=== PATIENT | female | born 1975 | race African-American/Black ===

== ENCOUNTER 2016-06-15 09:43 | Emergency (ER) | payer MEDICAID ==
[~2016-06-15] VITALS: Ht 160 cm; Wt 77.0 kg
[2016-06-15] MEDS ORDERED: ALBUTEROL (0.083%) 2.5MG/3ML NEB HHN STA (11:00)
[2016-06-15] MEDS ORDERED: PREDNISONE 20MG TABLET PO STA (11:00)
[2016-06-15] MEDS ORDERED: IPRATROPIUM BROMIDE (0.02%) 0.5MG/2.5ML NEB HHN STA (11:00)
[2016-06-15 14:28] VITALS: BP 141/79
== END 2016-06-15 14:28 | disposition home or self-care (01) ==
LOC: ER 10:51
DX: J45.901 Unspecified asthma with (acute) exacerbation (principal); F17.210 Nicotine dependence, cigarettes, uncomplicated
CPT/HCPCS: 71010; 94640; 99284; 99406; J7512; J7611